=== PATIENT | male | born 1980 | race Caucasian/White ===

== ENCOUNTER 2020-01-08 15:18 | Emergency (ER) | payer OTHER ==
[2020-01-08 15:28] VITALS: BP 130/76; PULSE 83; TEMP 97.8; BMI 28.8
--- NOTE | 2020-01-08 15:28 | PDOC ---
Rapid Medical Evaluation Time Seen by Provider: 01/08/20 15:23 Medical Evaluation: 01/08/20 15:24 CC: pain to billy knees x 2weeks, swelling to left knee, pain with ambulation, no sob, no injury, no outside activity, no hx lyme, Exam: noted edema to left patella, lrom with flexion, no kelsey discoloration, no increased warmth noted. Plan: duplex, labs Discharge Disposition - Diagnosis Knee swelling - Referrals - Patient Instructions - Post Discharge Activity
[2020-01-08] MEDS ORDERED: ACETAMINOPHEN 500 MG TABLET (FP) PO ONE (16:59)
[2020-01-08] MEDS ORDERED: ACETAMINOPHEN 500 MG TABLET (FP) ONE (17:01)
[2020-01-08 17:59] LABS: BASO % 0.5 % (0-2.0); EOS % 1.6 % (0-4.5); HEMATOCRIT 41.6 % (35.4-49); HEMOGLOBIN 13.8 GM/dL (11.7-16.9); LYMPH % 38.4 % (8-40); MCH 27.9 pg (25.7-33.7); MCHC 33.2 g/dl (32.0-35.9); MEAN CELL VOLUME 84.1 fl (80-96); MEAN PLT VOLUME 9.2 fl (7.5-11.1); MONO % 8.4 % (3.8-10.2); NEUT % 51.1 % (42.8-82.8); PLATELET COUNT 211 K/MM3 (134-434); RBC 4.95 M/mm3 (4.00-5.60); RDW 13.2 % (11.9-15.9); WHITE BLOOD COUNT 5.9 K/mm3 (4.0-10.0)
[2020-01-08 18:18] LABS: ALBUMIN 4.1 g/dl (3.4-5.0); BILIRUBIN,TOTAL 1.7 mg/dL (0.2-1); BLOOD UREA NITROGEN 14.8 mg/dL (7-18); CALCIUM 8.6 mg/dL (8.5-10.1); CREATININE 1.1 mg/dL (0.55-1.3); TOT PROT 7.7 g/dl (6.4-8.2)
[2020-01-08 18:49] LABS: ERYTHROCYTE SEDIMENTATION RATE 7 mm/hr (0-10); N-TERMINAL BNP 18.2 pg/ml (5-125)
--- NOTE | 2020-01-08 18:53 | PDOC ---
History of Present Illness - General Chief Complaint: Pain, Acute Stated Complaint: LEG SWOLLEN Time Seen by Provider: 01/08/20 15:23 - History of Present Illness Initial Comments: 01/08/20 18:50 39-year-old male with bilateral leg swelling x1 week without systemic symptoms. He complains of bilateral knee pain as well. Past History - Medical History Allergies/Adverse Reactions: Allergies Allergy/AdvReac Type Severity Reaction Status Date / Time No Known Allergies Allergy Verified 01/08/20 16:30 - Psycho-Social/Smoking History Smoking History: Never smoked Information on smoking cessation initiated: No - Substance Abuse Hx (Audit-C & DAST Scrn) How often the patient has a drink containing alcohol: Never Score: In Men: 4 or > Positive; In Women: 3 or > Positive: 0 Screen Result (Pos requires Nsg. Audit-10AR): Negative Review of Systems - Review of Systems Musculoskeletal: Yes: See HPI, Joint Pain *Physical Exam - Vital Signs Last Vital Signs Temp Pulse Resp BP Pulse Ox 97.8 F 83 17 130/76 99 01/08/20 15:24 01/08/20 15:24 01/08/20 15:24 01/08/20 15:24 01/08/20 15:24 - Physical Exam 01/08/20 18:51 GENERAL: The patient is awake, alert, and fully oriented, in no acute distress. HEAD: Normal with no signs of trauma. EYES: sclera anicteric, conjunctiva clear. ENT: Ears normal tympanic membranes normal oropharynx clear uvula midline NECK: Normal range of motion LUNGS: Breath sounds equal, clear to auscultation bilaterally. No wheezes, and no crackles. HEART: S1 and S2 without murmur, rub or gallop. ABDOMEN: Soft, nontender, normoactive bowel sounds. No guarding, no rebound. No masses. EXTREMITIES: Normal range of motion, no edema. No clubbing or cyanosis. No cords, erythema, or tenderness. NEUROLOGICAL: Cranial nerves II through XII grossly intact. PSYCH: Normal mood, normal affect. SKIN: Warm, Dry, normal turgor, no rashes or lesions noted. Bilateral knee full range of motion normal skin color and temperature no intra- articular effusions or evidence of instability. Bilateral calves are soft and nontender 1+ pitting edema left lower extremity 0 on the right neurovascular intact no gross sensorimotor deficits ED Treatment Course - LABORATORY CBC & Chemistry Diagram: 01/08/20 16:50 01/08/20 16:50 - ADDITIONAL ORDERS Additional order review: Laboratory Results 01/08/20 16:50 Sodium 142 Potassium 4.0 Chloride 110 H Carbon Dioxide 24 Anion Gap 8 BUN 14.8 Creatinine 1.1 Est GFR (CKD-EPI)AfAm 98.18 Est GFR (CKD-EPI)NonAf 84.71 Random Glucose 66 L Calcium 8.6 Total Bilirubin 1.7 H AST 20 ALT 19 Alkaline Phosphatase 124 H C-Reactive Protein 0.7 H B-Natriuretic Peptide 18.2 Total Protein 7.7 Albumin 4.1 01/08/20 16:50 RBC 4.95 MCV 84.1 MCHC 33.2 RDW 13.2 MPV 9.2 Neutrophils % 51.1 Lymphocytes % 38.4 Monocytes % 8.4 Eosinophils % 1.6 Basophils % 0.5 - Medications Given in the ED: ED Medications Discontinued Medications Generic Name Dose Route Start Last Admin Trade Name Freq PRN Reason Stop Dose Admin Acetaminophen 1,000 mg 01/08/20 16:59 01/08/20 17:02 Tylenol - PO 01/08/20 17:00 1,000 mg ONCE ONE Administration Medical Decision Making - Medical Decision Making 01/08/20 18:51 BMP and Doppler work-ups were negative. CRP is slightly elevated ESR is Normal tickborne illness study was sent. Follow-up with primary care physician crutches given for ambulation. 01/08/20 18:52 I have reviewed the pathophysiology with the patient. They are in agreement with the treatment plan all questions were answered to their satisfaction. Understanding for follow-up without fail was also conveyed to the patient. Again they are in agreement. Discharge - Discharge Information Problems reviewed: Yes Clinical Impression/Diagnosis: Edema Clinical Impression/Diagnosis: (Ruled Out): Knee swelling Condition: Stable Disposition: HOME - Admission No - Follow up/Referral Referrals: Grazyna Talley MD [Staff Physician] - - Patient Discharge Instructions Additional Instructions: Return to the emergency room for further issues and without fail follow-up with your primary care physician in 1 to 2 days for further evaluation and treatment options. You may weight-bear as tolerated with crutches as you are comfortable. - Post Discharge Activity
[2020-01-11 15:07] LABS: E.chaff HME IgG Negative (Neg:<1:64)
== END 2020-01-08 19:01 | disposition home or self-care (01) ==
LOC: JERFT 15:18
DX: R60.9 Edema, unspecified (principal); M25.462 Effusion, left knee; M25.461 Effusion, right knee
CPT/HCPCS: 36415; 80053; 83880; 85025; 85651; 86140; 86618; 86666; 87798; 93971-TC; 99284-25